=== PATIENT | male | born 1980 | race Caucasian/White ===

== ENCOUNTER 2021-10-01 10:15 | Emergency (ER) | payer BC, OTHER | END 2021-10-01 13:20 | disposition home or self-care (01) | LOC: FB.ED 10:15 | DX: J18.9 Pneumonia, unspecified organism (principal); Z79.899 Other long term (current) drug therapy | CPT/HCPCS: 36415; 71046; 80053; 81001; 82550; 84550; 85025; 86140; 87040; 99283; 99284-25 ==

== ENCOUNTER 2022-06-18 10:55 | Emergency (ER) | payer OTHER ==
[2022-06-18 12:36] LABS: CORONAVIRUS COVID-19 NAA NEGATIVE (NEGATIVE)
[2022-06-18 12:45] LABS: ESTIMATED GFR 98 mL/min (>60)
[2022-06-18] MEDS ORDERED: cefTRIAXone 1 GM Vial IM ONE (13:38)
== END 2022-06-18 13:55 | disposition home or self-care (01) ==
LOC: FB.ED 10:55
DX: J18.0 Bronchopneumonia, unspecified organism (principal); J01.90 Acute sinusitis, unspecified; B96.89 Other specified bacterial agents as the cause of diseases classified elsewhere; D84.9 Immunodeficiency, unspecified; Z20.822 Contact with and (suspected) exposure to COVID-19
CPT/HCPCS: 0240U; 36415; 71046; 80053; 81001; 83605; 83735; 85025; 86140; 96372; 99283; J0696

== ENCOUNTER 2023-03-06 18:28 | Emergency (ER) | payer OTHER ==
[2023-03-06 19:27] LABS: BASOPHILS PERCENT AUTO 0.3 % (0.3-3.8); EOSINOPHILS ABSOLUTE AUTO 0.2 x10-3/uL (0.0-0.6); EOSINOPHILS PERCENT AUTO 2.7 % (0.1-6.8); HEMATOCRIT 43.4 % (38.3-50.1); LYMPHOCYTES ABSOLUTE AUTO 1.3 x10-3/uL (0.5-4.5); LYMPHOCYTES PERCENT AUTO 14.1 % (15.8-45.3); MEAN CORPUSCULAR HGB CONC 34.6 g/dL (28.7-35.3); MEAN CORPUSCULAR VOLUME 86.7 fL (80.8-98.7); MEAN PLATELET VOLUME 8.3 fL (6.7-11.0); MONOCYTES ABSOLUTE AUTO 0.7 x10-3/uL (0.0-1.2); MONOCYTES PERCENT AUTO 7.6 % (5.5-15.2); NEUTROPHILS ABSOLUTE AUTO 6.8 x10-3/uL (1.7-6.9); NEUTROPHILS PERCENT AUTO 75.3 % (40.3-71.8); PLATELET COUNT,PLT 182 x10(3)uL (117-477); RED CELL DISTRIBUTION WIDTH 14.5 % (12.4-15.0)
[2023-03-06 19:32] LABS: BLOOD UREA NITROGEN,BUN 14 mg/dL (7-18); CALCIUM 9.4 mg/dL (8.6-10.2); CARBON DIOXIDE,CO2 29 mmol/L (21-32); CHLORIDE,CL 100 mmol/L (100-110); ESTIMATED GFR 98 mL/min (>60); GLUCOSE RANDOM 101 mg/dL (80-116); POTASSIUM,K 3.7 mmol/L (3.5-5.3); SODIUM,NA 136 mmol/L (135-145)
[2023-03-06 19:37] LABS: A/G RATIO 1.1; ALANINE AMINOTRANSFERASE,ALT 41 U/L (12-36); ALKALINE PHOSPHATASE 102 IU/L (56-112); ASPARTATE AMNIOTRANSFERASE,AST 26 IU/L (5-25); BILIRUBIN TOTAL 0.4 mg/dL (0.1-1.3); PROTEIN TOTAL,TP 7.8 g/dL (6.0-8.0)
[2023-03-06 19:51] LABS: INR 0.9 (1.00-1.24); PROTHROMBIN TIME 9.3 sec (9.0-11.1); PTT,PARTIAL THROMBOPLSTIN TIME 27.8 SECONDS (24.4-33.2)
[2023-03-06] MEDS: Sodium Chloride 0.9% 10 ML Syringe FLUSH PRN ×2 (20:15→20:36)
[2023-03-06] MEDS ORDERED: Labetalol 20 MG/4 ML Syringe IVPUSH ONE ×3 (20:31→20:51)
[2023-03-06] MEDS ORDERED: Morphine 2 MG/ML SYRINGE IVPUSH ONE (20:56)
== END 2023-03-06 21:15 ==
LOC: FB.ED 18:28
DX: I61.8 Other nontraumatic intracerebral hemorrhage (principal); C43.9 Malignant melanoma of skin, unspecified
CPT/HCPCS: 36415; 70450; 80053; 84484; 85025; 85610; 85730; 93005; 96374; 96375; 99285; J2270; J3490